=== PATIENT | female | born 1970 | race American Indian/Alaskan Native ===

== ENCOUNTER 2021-12-27 08:54 | Outpatient (CLI) | payer OTHER ==
--- NOTE | 2021-12-27 10:32 | XRay Report ---
LUMBAR SPINE 5 VIEW INDICATION / CLINICAL INFORMATION: BACK PAIN. COMPARISON: None available. FINDINGS: BONES / JOINT(S): No acute fracture or subluxation. Mild degenerative disc disease at L4-5 and L5-S1. Minimal left convex scoliosis with the apex at the L3 level. SOFT TISSUES: No significant abnormality. ADDITIONAL FINDINGS: None. IMPRESSION: 1. No acute findings. Signer Name: Jimmie Us MD Signed: 12/27/2021 10:27 AM Workstation Name: [id number]
--- NOTE | 2021-12-27 10:35 | XRay Report ---
. LEFT SHOULDER 3 VIEW(S) INDICATION / CLINICAL INFORMATION: PAIN IN LEFT SHOULDER. COMPARISON: None available. FINDINGS: BONES / JOINT(S): No acute fracture or subluxation. No significant arthritis. SOFT TISSUES: No significant abnormality. ADDITIONAL FINDINGS: Rotator cuff anchor projects over left proximal humerus IMPRESSION: 1. No acute findings. Signer Name: Silver Alanis MD Signed: 12/27/2021 10:31 AM Workstation Name: [id number]
== END 2021-12-27 08:55 | disposition home or self-care (01) ==
LOC: XRAY 08:54
PROVIDERS: ATTEND Internal Medicine
DX: M47.817 Spondylosis without myelopathy or radiculopathy, lumbosacral region (principal); M25.512 Pain in left shoulder
CPT/HCPCS: 72110